=== PATIENT | female | born 1950 | race Caucasian/White ===

== ENCOUNTER 2016-09-08 11:44 | Emergency (ER) | payer BC ==
[2016-09-08 11:57] VITALS: BP 131/61
--- NOTE | 2016-09-08 12:44 | UC ---
Throat Pain/Nasal Arthur HPI - HPI Summary HPI Summary: complaint of cough nasal congestion , sore throat that started 3 days ago for the last 2 days she has started wheezing more often worse at night, cough is worse at night feels like her breathing is tight denies shortness of breath at this time using all her regular inhalers- pulmicort added since illness last inhaler use 11:00 today denies fever but has had chills OTC cold and congestion with some relief of symptoms - History of Current Complaint Chief Complaint: UCRespiratory Stated Complaint: CHEST CONGESTION, COUGH Time Seen by Provider: 09/08/16 12:39 Hx Obtained From: Patient - Allergies/Home Medications Allergies/Adverse Reactions: Allergies Allergy/AdvReac Type Severity Reaction Status Date / Time Ciprofloxacin [From Cipro] Allergy Itching Verified 01/15/16 13:26 Clavulanic Acid Allergy Itching Verified 01/15/16 13:26 [From Augmentin] Doxycycline Allergy Itching Verified 01/15/16 13:26 Iodine Allergy See Comment Verified 01/15/16 13:26 Avalox AdvReac See Comment Uncoded 01/15/16 13:26 Home Medications: Home Medications Budesonide Flexhaler 180 (NF) [Pulmicort Flexhaler 180 mcg/act (NF)] 2 inh IN BID 09/08/16 [History Confirmed 09/08/16] Pravastatin Sodium [Pravachol] 40 mg PO QPM 09/08/16 [History Confirmed 09/08/16 ] PMH/Surg Hx/FS Hx/Imm Hx Previously Healthy: Yes Endocrine History Of: Reports: Diabetes Cardiovascular History Of: Reports: Hypertension Respiratory History Of: Reports: Asthma GI/ History Of: Denies: Kidney Stones Psychological History Of: Reports: Anxiety Cancer History Of: Denies: Lung Cancer - Surgical History Surgical History: Yes Surgery Procedure, Year, and Place: Mastectomy, Implant, Breast reconstruction 2001, Sinus surgery x 2 - Family History Known Family History: Positive: None Negative: Cardiac Disease, Hypertension, Diabetes - Social History Occupation: Employed Part-time Lives: With Family Alcohol Use: Weekly Substance Use Type: None Smoking Status (MU): Never Smoked Tobacco Type: Cigarettes Amount Used/How Often: 1/2 PPD Length of Time of Smoking/Using Tobacco: 29 Years Have You Smoked in the Last Year: No When Did the Patient Quit Smoking/Using Tobacco: 2005 - Immunization History Most Recent Influenza Vaccination: June 2015 Review of Systems Constitutional: Chills Skin: Negative Eyes: Negative ENT: Sore Throat, Nasal Discharge Respiratory: Cough Cardiovascular: Negative Gastrointestinal: Negative Genitourinary: Negative Motor: Negative Neurovascular: Negative Musculoskeletal: Negative Neurological: Negative Psychological: Negative All Other Systems Reviewed And Are Negative: Yes Physical Exam Triage Information Reviewed: Yes Appearance: No Pain Distress, Well-Nourished Vital Signs: Initial Vital Signs Temp 96.6 F 09/08/16 11:54 Pulse 86 09/08/16 11:54 Resp 16 09/08/16 11:54 BP 131/61 09/08/16 11:54 Pulse Ox 98 09/08/16 11:54 Vital Signs Reviewed: Yes Eyes: Positive: Conjunctiva Clear ENT: Positive: Pharynx normal, Nasal congestion, Nasal drainage, TMs normal Neck: Positive: No Lymphadenopathy Respiratory: Positive: Wheezing - in BLL, no rhonchi , other tenorio CTA. Negative: No respiratory distress, No accessory muscle use Cardiovascular: Positive: RRR, No Murmur, Pulses Normal Abdomen Description: Positive: Nontender, Soft Bowel Sounds: Positive: Present Musculoskeletal: Positive: No Edema Neurological: Positive: Alert Psychological Exam: Normal Skin Exam: Normal Throat Pain/Nasal Course/Dx - Course Course Of Treatment: exam completed. will treat for asthma exacerbation with follow with pulmunologist - Differential Dx/Diagnosis Provider Diagnoses: asthma exacerbation Discharge - Discharge Plan Condition: Stable Disposition: HOME Prescriptions: Azithromycin TAB* [Zithromax TAB (Z-DONNA)*] 0 mg PO .Z-DONNA INSTRUCTIONS #6 tab predniSONE TAB* [Deltasone TAB*] 50 mg PO DAILY #5 tab Patient Education Materials: Asthma (ED), Wheezing (ED) Referrals: Ziggy Vazquez MD [Primary Care Provider] - Additional Instructions: Please take antibiotic and prednisone as directed Use your regular inhalers as directed for wheezing, shortness of breath or uncontrolled coughing. Increase fluids and rest Take acetaminophen or ibuprofen for fever or pain Please review your discharge instructions. If your symptoms do not improve please call your pulmunologist or primary care provider or return to urgent care.
== END 2016-09-08 12:59 | disposition home or self-care (01) ==
LOC: UCCORT 11:44
DX: J45.901 Unspecified asthma with (acute) exacerbation (principal); E11.9 Type 2 diabetes mellitus without complications; I10 Essential (primary) hypertension; F41.9 Anxiety disorder, unspecified; Z87.891 Personal history of nicotine dependence; Z88.1 Allergy status to other antibiotic agents; Z88.8 Allergy status to other drugs, medicaments and biological substances
CPT/HCPCS: 99212; G0463

== ENCOUNTER 2016-10-06 14:27 | Emergency (ER) | payer BC ==
[2016-10-06 17:20] VITALS: BP 155/77
--- NOTE | 2016-10-06 17:48 | UC ---
Respiratory Complaint HPI - HPI Summary HPI Summary: URI symptoms for 2days, has triggered her asthma. Wheezing. Needs Pulmicort for her neb. Had similar illness 1 month ago, resolved with Zithromax and steroid. Feels SOB with exertion. Hard to lie flat. Dry, bronchospastic cough. MIld sinus congestion, discomfort right maxillary sinus. Mild ST. Able to eat and drink. Nonsmoker - History of Current Complaint Chief Complaint: UCRespiratory Stated Complaint: HEAD/CHEST CONGESTION Time Seen by Provider: 10/06/16 17:35 Hx Obtained From: Patient Onset/Duration: Gradual Onset, Lasting Days - 2 Timing: Constant Severity Initially: Mild Severity Currently: Moderate Character: Cough: Productive Aggravating Factors: Exertion, Recumbent Position Alleviating Factors: Bronchodilator Associated Signs And Symptoms: Positive: Dyspnea, Wheezing, URI, Nasal Congestion, Hoarseness, Sinus Discomfort. Negative: Fever, Chills, Pleuritic Chest Pain, Hemoptysis, Dizziness, Calf Pain, Calf Swelling - Risk Factors Pulmonary Embolism Risk Factors: Negative Cardiac Risk Factors: Negative Pseudomonas Risk Factors: Negative Tuberculosis Risk Factors: Negative - Allergies/Home Medications Allergies/Adverse Reactions: Allergies Allergy/AdvReac Type Severity Reaction Status Date / Time Ciprofloxacin [From Cipro] Allergy Itching Verified 10/06/16 17:20 Clavulanic Acid Allergy Itching Verified 10/06/16 17:20 [From Augmentin] Doxycycline Allergy Itching Verified 10/06/16 17:20 Iodine Allergy See Comment Verified 10/06/16 17:20 Avalox AdvReac See Comment Uncoded 10/06/16 17:20 PMH/Surg Hx/FS Hx/Imm Hx Endocrine History Of: Reports: Diabetes Cardiovascular History Of: Reports: Hypertension Respiratory History Of: Reports: Asthma GI/ History Of: Denies: Kidney Stones Psychological History Of: Reports: Anxiety Cancer History Of: Denies: Lung Cancer - Surgical History Surgical History: Yes Surgery Procedure, Year, and Place: Mastectomy, Implant, Breast reconstruction 2001, Sinus surgery x 2 - Family History Known Family History: Positive: None Negative: Cardiac Disease, Hypertension, Diabetes - Social History Occupation: Employed Full-time Lives: With Family Alcohol Use: Weekly Substance Use Type: None Smoking Status (MU): Former Smoker Type: Cigarettes Amount Used/How Often: 1/2 PPD Length of Time of Smoking/Using Tobacco: 29 Years Have You Smoked in the Last Year: No When Did the Patient Quit Smoking/Using Tobacco: 2005 - Immunization History Most Recent Influenza Vaccination: June 2015 Review of Systems Constitutional: Fatigue Skin: Negative Eyes: Negative ENT: Sore Throat - mild, Nasal Discharge Respiratory: Shortness Of Breath, Cough Cardiovascular: Negative Gastrointestinal: Negative Genitourinary: Negative Motor: Negative Neurovascular: Negative Musculoskeletal: Negative Neurological: Negative Psychological: Negative All Other Systems Reviewed And Are Negative: Yes Physical Exam Triage Information Reviewed: Yes Appearance: Well-Appearing, No Pain Distress, Well-Nourished Vital Signs: Initial Vital Signs Temp 97.8 F 10/06/16 17:18 Pulse 100 10/06/16 17:18 Resp 16 10/06/16 17:18 BP 155/77 10/06/16 17:18 Pulse Ox 96 10/06/16 17:18 Vital Signs Reviewed: Yes Eye Exam: Normal ENT: Positive: Hearing grossly normal, Pharynx normal, Pharyngeal erythema - mild, Nasal congestion, TMs normal, Muffled/hoarse voice - hoarse. Negative: Tonsillar swelling, Tonsillar exudate, Trismus Neck exam: Normal Neck: Positive: Supple Respiratory: Positive: No respiratory distress, No accessory muscle use, Rhonchi , Wheezing - end-expiratory, diffuse, mild Musculoskeletal Exam: Normal Neurological Exam: Normal Psychological Exam: Normal Skin Exam: Normal UC Diagnostic Evaluation - Laboratory O2 Sat by Pulse Oximetry: 96 Respiratory Course/Dx - Differential Dx/Diagnosis Differential Diagnosis/HQI/PQRI: Bronchitis, Lower Resp Infection, Sinusitis Provider Diagnoses: URI with bronchospasm Discharge - Discharge Plan Condition: Stable Disposition: HOME Prescriptions: Azithromycin TAB* [Zithromax TAB (Z-DONNA) 250 mg #6 tabs] 250 mg PO DAILY #10 tab Budesonide NEB* [Pulmicort NEB*] 0.5 mg INH BID #30 neb.soln predniSONE TAB* [Deltasone TAB*] 20 mg PO DAILY #14 tab Patient Education Materials: Upper Respiratory Infection (ED), Bronchospasm (ED ) Referrals: Ziggy Vazquez MD [Primary Care Provider] -
== END 2016-10-06 17:57 | disposition home or self-care (01) ==
LOC: UCCORT 14:27
DX: J06.9 Acute upper respiratory infection, unspecified (principal); J98.01 Acute bronchospasm; J45.909 Unspecified asthma, uncomplicated; E11.9 Type 2 diabetes mellitus without complications; I10 Essential (primary) hypertension; F41.9 Anxiety disorder, unspecified; Z87.891 Personal history of nicotine dependence; Z88.1 Allergy status to other antibiotic agents; Z91.041 Radiographic dye allergy status
CPT/HCPCS: 99212; G0463

== ENCOUNTER 2017-07-24 09:50 | Emergency (ER) | payer MEDICARE ==
[2017-07-24 10:17] VITALS: BP 135/85
--- NOTE | 2017-07-24 10:59 | UC ---
Respiratory Complaint HPI - HPI Summary HPI Summary: Cough, wheezing, congestion. She has hx of asthma and feels like an asthma exacerbation. She has been taking her rescue inhaler and inhaled steroid. - History of Current Complaint Chief Complaint: UCRespiratory Stated Complaint: CONGESTION Time Seen by Provider: 07/24/17 10:44 Hx Obtained From: Patient Hx Last Menstrual Period: n/a Onset/Duration: Gradual Onset, Lasting Days Timing: Constant Severity Initially: Moderate Severity Currently: Moderate Character: Cough: Nonproductive Aggravating Factors: Deep Breaths, Recumbent Position Alleviating Factors: Bronchodilator Associated Signs And Symptoms: Positive: Negative, Wheezing, URI, Nasal Congestion - Allergies/Home Medications Allergies/Adverse Reactions: Allergies Allergy/AdvReac Type Severity Reaction Status Date / Time Ciprofloxacin [From Cipro] Allergy Itching Verified 07/24/17 10:17 Clavulanic Acid Allergy Itching Verified 07/24/17 10:17 [From Augmentin] Doxycycline Allergy Itching Verified 07/24/17 10:17 Iodine Allergy See Comment Verified 07/24/17 10:17 Avalox AdvReac See Comment Uncoded 07/24/17 10:17 Home Medications: Home Medications Albuterol HFA INHALER* [Ventolin HFA Inhaler*] 2 puff INH Q4H PRN 07/24/17 [ History Confirmed 07/24/17] PMH/Surg Hx/FS Hx/Imm Hx Previously Healthy: No - asthma, htn. - Surgical History Surgical History: Yes Surgery Procedure, Year, and Place: Mastectomy, Implant, Breast reconstruction 2001, Sinus surgery x 2 - Family History Known Family History: Positive: None Negative: Cardiac Disease, Hypertension, Diabetes - Social History Alcohol Use: Weekly Substance Use Type: None Smoking Status (MU): Former Smoker Type: Cigarettes Amount Used/How Often: 1/2 PPD Length of Time of Smoking/Using Tobacco: 29 Years Have You Smoked in the Last Year: No When Did the Patient Quit Smoking/Using Tobacco: 2005 - Immunization History Most Recent Influenza Vaccination: June 2015 Review of Systems ENT: Sinus Congestion Respiratory: Shortness Of Breath, Cough All Other Systems Reviewed And Are Negative: Yes Physical Exam Triage Information Reviewed: Yes Appearance: Well-Appearing, No Pain Distress, Well-Nourished Vital Signs: Initial Vital Signs Temp 98.1 F 07/24/17 10:12 Pulse 98 07/24/17 10:12 Resp 20 07/24/17 10:12 BP 135/85 07/24/17 10:12 Pulse Ox 96 07/24/17 10:12 Vital Signs Reviewed: Yes Eye Exam: Normal Eyes: Positive: Conjunctiva Clear ENT: Positive: Normal ENT inspection, Nasal congestion, Uvula midline. Negative : Pharyngeal erythema, Sinus tenderness Neck: Positive: Supple, Nontender, No Lymphadenopathy Respiratory: Positive: Chest non-tender, No respiratory distress, No accessory muscle use, Wheezing, Other: - good air movement.. Negative: Accessory muscle use, Crackles, Rhonchi, Stridor Cardiovascular: Positive: RRR, No Murmur, Pulses Normal, Brisk Capillary Refill Abdomen Description: Positive: Nontender, No Organomegaly. Negative: Distended , Guarding Musculoskeletal: Positive: Strength Intact, ROM Intact, No Edema Neurological: Positive: Alert, Muscle Tone Normal, Fatigued Skin: Negative: rashes UC Diagnostic Evaluation - Laboratory O2 Sat by Pulse Oximetry: 96 Respiratory Course/Dx - Differential Dx/Diagnosis Provider Diagnoses: uri. acute asthma exacerbation. Discharge - Discharge Plan Condition: Good Disposition: HOME Prescriptions: Azithromyxin DONNA (NF) [Z-Donna (Zithromax) 250 mg tabs #6] 2 tab PO .TODAY, THEN 1 DAILY #6 tab Prednisone 20 mg PO DAILY #15 tab Patient Education Materials: Asthma (ED), Reactive Airways Disease (ED) Referrals: Ziggy Vazquez MD [Primary Care Provider] - If Needed
== END 2017-07-24 11:00 | disposition home or self-care (01) ==
LOC: UCCORT 09:50
DX: J45.901 Unspecified asthma with (acute) exacerbation (principal); J06.9 Acute upper respiratory infection, unspecified; I10 Essential (primary) hypertension; Z88.3 Allergy status to other anti-infective agents; Z87.891 Personal history of nicotine dependence
CPT/HCPCS: 99212; G0463

== ENCOUNTER 2017-07-28 10:20 | Emergency (ER) | payer MEDICARE ==
[2017-07-28 13:15] VITALS: BP 146/68
--- NOTE | 2017-07-28 13:30 | UC ---
Ear Complaint HPI - HPI Summary HPI Summary: Pt c/o right ear pain that began 2 days ago. Pt was treated on 07/24/17 for bronchitis with z-kevan and prednisone. Pt states that cough has improved but now ear pain began 2 days ago. - History of Current Complaint Chief Complaint: UCRespiratory Stated Complaint: EAR ACHE,SINUSES RECHECK Time Seen by Provider: 07/28/17 13:15 Hx Obtained From: Patient Hx Last Menstrual Period: n/a ?: No Onset/Duration: Sudden Onset, Lasting Days, Still Present, Worse Since - onset Severity Initially: Mild Severity Currently: Moderate Associated Signs/Symptoms: Positive: URI Symptoms - Allergies/Home Medications Allergies/Adverse Reactions: Allergies Allergy/AdvReac Type Severity Reaction Status Date / Time Ciprofloxacin [From Cipro] Allergy Itching Verified 07/28/17 13:13 Clavulanic Acid Allergy Itching Verified 07/28/17 13:13 [From Augmentin] Doxycycline Allergy Itching Verified 07/28/17 13:13 Iodine Allergy See Comment Verified 07/28/17 13:13 Avalox AdvReac See Comment Uncoded 07/28/17 13:13 PMH/Surg Hx/FS Hx/Imm Hx Previously Healthy: Yes - Surgical History Surgical History: Yes Surgery Procedure, Year, and Place: Mastectomy, Implant, Breast reconstruction 2001, Sinus surgery x 2 - Family History Known Family History: Positive: None Negative: Cardiac Disease, Hypertension, Diabetes - Social History Occupation: Retired Lives: With Family Alcohol Use: Weekly Substance Use Type: None Smoking Status (MU): Former Smoker Type: Cigarettes Amount Used/How Often: 1/2 PPD Length of Time of Smoking/Using Tobacco: 29 Years Have You Smoked in the Last Year: No When Did the Patient Quit Smoking/Using Tobacco: 2005 - Immunization History Most Recent Influenza Vaccination: June 2017 Vaccination Up to Date: Yes Review of Systems Constitutional: Negative Skin: Negative Eyes: Negative ENT: Ear Ache Respiratory: Cough Cardiovascular: Negative Gastrointestinal: Negative Genitourinary: Negative Motor: Negative Neurovascular: Negative Musculoskeletal: Negative Neurological: Negative Psychological: Negative Is Patient Immunocompromised?: No All Other Systems Reviewed And Are Negative: Yes Physical Exam Triage Information Reviewed: Yes Appearance: Well-Appearing Vital Signs: Initial Vital Signs Temp 98 F 07/28/17 13:10 Pulse 92 07/28/17 13:10 Resp 20 07/28/17 13:10 BP 146/68 07/28/17 13:10 Pulse Ox 94 07/28/17 13:10 Vital Signs Reviewed: Yes Eye Exam: Normal ENT Exam: Other ENT: Positive: TM bulging, TM red - right Neck exam: Normal Respiratory Exam: Normal Cardiovascular Exam: Normal Musculoskeletal Exam: Normal Neurological Exam: Normal Psychological Exam: Normal Skin Exam: Normal Ear Complaint Course/Dx - Differential Dx/Diagnosis Differential Diagnosis/HQI/PQRI: Otitis Media, URI Provider Diagnoses: OM right ear Discharge - Discharge Plan Condition: Stable Disposition: HOME Prescriptions: Clarithromycin TAB* [Biaxin 250 MG TAB*] 250 mg PO Q12H #10 tab Patient Education Materials: Otitis Media (ED) Referrals: Ziggy Vazquez MD [Primary Care Provider] - If Needed
== END 2017-07-28 13:38 | disposition home or self-care (01) ==
LOC: UCCORT 10:20
DX: H66.91 Otitis media, unspecified, right ear (principal); Z88.1 Allergy status to other antibiotic agents; Z87.891 Personal history of nicotine dependence
CPT/HCPCS: 99212; G0463

== ENCOUNTER 2017-10-04 14:21 | Emergency (ER) | payer MEDICARE ==
[2017-10-04 16:32] VITALS: BP 150/81
--- NOTE | 2017-10-04 16:42 | ED ---
Throat Pain/Nasal Congestion - HPI Summary HPI Summary: 67 yr old on Augmentin for sinus infection and steroids for asthma. Presents here with new complaint of sore throat for a day. She has no stridor. No drooling. No other complaints. - History of Current Complaint Chief Complaint: UCRespiratory Time Seen by Provider: 10/04/17 16:14 - Allergies/Home Medications Allergies/Adverse Reactions: Allergies Allergy/AdvReac Type Severity Reaction Status Date / Time MS Ciprofloxacin [From Cipro] Allergy Itching Verified 10/04/17 16:10 MS Clavulanic Acid Allergy Itching Verified 10/04/17 16:10 [From Augmentin] MS Doxycycline [Doxycycline] Allergy Itching Verified 10/04/17 16:10 MS Iodine [Iodine] Allergy See Comment Verified 10/04/17 16:10 Avalox AdvReac See Comment Uncoded 10/04/17 16:10 Home Medications: Home Medications Amoxicillin/Clavulanate TAB* [Augmentin TAB 875*] 875 mg PO BID 10/04/17 [ History Confirmed 10/04/17] Prednisone 30 mg PO BID 10/04/17 [History Confirmed 10/04/17] PMH/Surg Hx/FS Hx/Imm Hx Endocrine/Hematology History: Reports: Hx Diabetes Denies: Hx Systemic Lupus Erythematosus Cardiovascular History: Reports: Hx Hypertension Respiratory History: Reports: Hx Asthma Denies: Hx Lung Cancer History: Denies: Hx Kidney Stones Musculoskeletal History: Denies: Hx Rheumatoid Arthritis Psychiatric History: Reports: Hx Anxiety - Cancer History Cancer Type, Location and Year: Breast CA Hx Chemotherapy: Yes - Breast Ca 2001 - Surgical History Surgery Procedure, Year, and Place: Mastectomy, Implant, Breast reconstruction 2001, Sinus surgery x 2 Infectious Disease History: Yes Infectious Disease History: Reports: Hx Shingles - ~2006 Denies: Hx Clostridium Difficile, Hx Hepatitis, Hx Human Immunodeficiency Virus (HIV), Hx of Known/Suspected MRSA, Hx Tuberculosis, Hx Known/Suspected VRE , Hx Known/Suspected VRSA, History Other Infectious Disease, Traveled Outside the [place] in Last 30 Days - Family History Known Family History: Positive: None Negative: Cardiac Disease, Hypertension, Diabetes - Social History Alcohol Use: Weekly Alcohol Amount: 2 Substance Use Type: Reports: None Smoking Status (MU): Former Smoker Type: Cigarettes Amount Used/How Often: 1/2 PPD Length of Time of Smoking/Using Tobacco: 29 Years Have You Smoked in the Last Year: No Review of Systems Constitutional: Negative Positive: Sore Throat, Nasal Discharge Positive: Cough All Other Systems Reviewed And Are Negative: Yes Physical Exam Triage Information Reviewed: Yes Vital Signs On Initial Exam: Initial Vitals Temp Pulse Resp BP Pulse Ox 97.5 F 98 18 150/81 96 10/04/17 16:27 10/04/17 16:27 10/04/17 16:27 10/04/17 16:27 10/04/17 16:27 Vital Signs Reviewed: Yes Appearance: Positive: Well-Appearing, No Pain Distress Skin: Positive: Warm, Skin Color Reflects Adequate Perfusion Eyes: Positive: EOMI ENT: Positive: Pharyngeal erythema, Nasal congestion Neck: Positive: Supple, Nontender Respiratory/Lung Sounds: Positive: Clear to Auscultation, Breath Sounds Present Cardiovascular: Positive: RRR. Negative: Murmur Abdomen Description: Positive: Nontender Musculoskeletal: Positive: Strength/ROM Intact Neurological: Positive: Sensory/Motor Intact, Alert, Oriented to Person Place, Time, CN Intact II-III Psychiatric: Positive: Normal - Beto Coma Scale Best Eye Response: 4 - Spontaneous Best Motor Response: 6 - Obeys Commands Best Verbal Response: 5 - Oriented Coma Scale Total: 15 Diagnostics - Vital Signs Vital Signs Temp Pulse Resp BP Pulse Ox 10/04/17 16:27 97.5 F 98 18 150/81 96 - Laboratory Lab Results: Lab Results 10/04/17 Range/Units 16:27 Group A Strep Rapid Negative (Negative) Lab Statement: Any lab studies that have been ordered have been reviewed, and results considered in the medical decision making process. EENT Course/Dx - Course Course Of Treatment: 67 yr old with sore throat. DC home. Strep neg. - Diagnoses Provider Diagnoses: Pharyngitis, Hypertension Discharge - Discharge Plan Condition: Good Disposition: HOME Patient Education Materials: Pharyngitis (ED), Hypertension (ED) Referrals: Ziggy Vazquez MD [Primary Care Provider] -
== END 2017-10-04 16:49 | disposition home or self-care (01) ==
LOC: UCCORT 14:21
DX: J02.9 Acute pharyngitis, unspecified (principal); I10 Essential (primary) hypertension; E11.9 Type 2 diabetes mellitus without complications; J45.909 Unspecified asthma, uncomplicated; F41.9 Anxiety disorder, unspecified; Z85.3 Personal history of malignant neoplasm of breast; Z88.1 Allergy status to other antibiotic agents; Z87.891 Personal history of nicotine dependence
CPT/HCPCS: 87651; 99212; G0463

== ENCOUNTER 2023-02-08 09:44 | Inpatient (IN) ==
[~2023-02-08 09:44] MED LIST: Buffered Lidocaine 1% SYRIN 1 ml INTRADERM ONE; Lactated Ringers 1000 ml BAG 1,000 ML IV SCH; Naloxone 0.4 mg VIAL 0.4 mg/ml 1 ml VIAL IV PRN; Ondansetron 4 mg VIAL 2 MG/ML 2 ml VIAL IV PRN; fentaNYL 100 mcg/2 ml 50 MCG/ML VIAL IV PRN
[2023-02-08] MEDS ORDERED: Propofol 10 MG/ML 20 ML BTL ONE ×2 (10:32→14:20)
[2023-02-08] MEDS ORDERED: Lidocaine 2% PF 5 ML VIAL ONE (10:44)
[2023-02-08] MEDS ORDERED: ceFAZolin 2 GM in NS PREMIX 2 GM/100 ML BAG IVPB ONE (10:44)
[2023-02-08 10:54] LABS: Rapid COVID-19 Molecular Undetected (Undetected)
[2023-02-08] MEDS ORDERED: Dexamethasone IV 4 MG/ML VIAL 1 ml VIAL ONE ×2 (10:58→13:30)
[2023-02-08] MEDS ORDERED: Midazolam 2 mg/2 ml VIAL 1 mg/ml 2 ml VIAL (2 mg) ONE (10:58)
[2023-02-08] MEDS ORDERED: ROPIVACAINE 5 MG/ML 30 ML BTL (0.5%) ONE (10:58)
[2023-02-08] MEDS ORDERED: Ketamine HCL 50 mg/ml 10 ml VIAL (500 MG) ONE (12:52)
[2023-02-08] MEDS ORDERED: fentaNYL 100 mcg/2 ml 50 MCG/ML VIAL ONE (13:00)
[2023-02-08] MEDS ORDERED: Glycopyrrolate IV 0.2 MG/ML 1 ML VIAL ONE (13:30)
[2023-02-08] MEDS ORDERED: Lactulose 30 ml UDC PO PRN (14:40)
[2023-02-08] MEDS ORDERED: Magnesium Hydroxide LIQ 30 ML UDC PO PRN (14:40)
[2023-02-08] MEDS ORDERED: Morphine 2 MG/ML SYRINGE IV PRN (14:40)
[2023-02-08] MEDS ORDERED: Ondansetron 4 mg VIAL 2 MG/ML 2 ml VIAL ONE (14:46)
[2023-02-08] MEDS ORDERED: Albuterol/Ipratropium NEB.SOL (2.5/0.5 MG) 3 ML NEB.SOLN INH PRN (16:30)
[2023-02-08] MEDS ORDERED: Dextrose 50% Syringe 50 ml 25 GM/50 ML SYRINGE IV PUSH PRN (16:34)
[2023-02-08] MEDS ORDERED: Acetylcysteine INH SOL (RT) 200 MG/ML 4 ML VIAL INH PRN (17:30)
[2023-02-08] MEDS: Lactated Ringers 1000 ml BAG 1,000 ML IV SCH (17:49)
[2023-02-08] MEDS: Mometasone 220 MCG MDI INH SCH ×2 (19:38→19:47)
[2023-02-08] MEDS: DULoxetine DR 30 mg CAP PO SCH (20:28)
[2023-02-08] MEDS ORDERED: [UNRECOGNIZED DRUG - OTHER] INH SCH (21:00)
[2023-02-08] MEDS ORDERED: Insulin GLARGINE 100 un/ml 10 ml VIAL SUBCUT SCH (21:00)
[2023-02-08] MEDS: Magnesium Hydroxide LIQ 30 ML UDC PO SCH (21:35)
[2023-02-08] MEDS: BUDESONIDE GLYCOPYR FORMOTEROL INH SCH (22:07)
[2023-02-08] MEDS: ACTUA INH SCH (22:07)
[2023-02-08] MEDS: ceFAZolin 1 GM ADVAN 1 GM in NS 0.9% 50 ML 50 ML IVPB SCH (22:08)
[2023-02-09] MEDS: Lactated Ringers 1000 ml BAG 1,000 ML IV SCH (04:30)
[2023-02-09] MEDS: ceFAZolin 1 GM ADVAN 1 GM in NS 0.9% 50 ML 50 ML IVPB SCH ×2 (06:51→14:49)
[2023-02-09] MEDS: Mometasone 220 MCG MDI INH SCH ×2 (06:57→19:23)
[2023-02-09 08:12] LABS: Hematocrit 32.6 % (35-45); Hemoglobin 11.1 g/dL (11.5-14.3); Mean Platelet Volume 8.2 fL (7.5-11.2); Platelet Count 200 10^3/uL (150-450)
[2023-02-09 08:31] LABS: Calcium 10.3 mg/dL (8.6-10.3); Creatinine, Serum 1.04 mg/dL (0.51-0.95); Potassium 4.4 mmol/L (3.5-5.0); eGFR CKD-EPI 57.8 (>60)
[2023-02-09] MEDS ORDERED: Olmesartan 40 mg TAB (NF) PO SCH (09:00)
[2023-02-09] MEDS: Magnesium Hydroxide LIQ 30 ML UDC PO SCH ×2 (10:09→21:03)
[2023-02-09] MEDS: DULoxetine DR 30 mg CAP PO SCH ×2 (10:10→21:06)
[2023-02-09] MEDS: Vitamin THERAPEUTIC TAB PO SCH (10:10)
[2023-02-09] MEDS: DAPAGLIFLOZIN 5 MG PO SCH (13:59)
[2023-02-09] MEDS: BECLOMETHASONE DIPROPIONATE INTRANASAL SCH (15:04)
[2023-02-09] MEDS: BUDESONIDE GLYCOPYR FORMOTEROL INH SCH (15:04)
[2023-02-09] MEDS: ACTUA INH SCH (15:04)
[2023-02-09] MEDS ORDERED: Insulin GLARGINE 100 un/ml 10 ml VIAL SUBCUT SCH (21:00)
[2023-02-09] MEDS: Albuterol HFA INHALER 8 gm MDI INH PRN (23:07)
[2023-02-10 06:57] LABS: Hematocrit 31.9 % (35-45); Hemoglobin 10.8 g/dL (11.5-14.3); Mean Platelet Volume 8.2 fL (7.5-11.2); Platelet Count 223 10^3/uL (150-450)
[2023-02-10] MEDS: Mometasone 220 MCG MDI INH SCH ×2 (08:20→19:20)
[2023-02-10] MEDS: Albuterol HFA INHALER 8 gm MDI INH PRN ×2 (08:54→23:48)
[2023-02-10] MEDS: BECLOMETHASONE DIPROPIONATE INTRANASAL SCH (08:55)
[2023-02-10] MEDS: Magnesium Hydroxide LIQ 30 ML UDC PO SCH ×2 (08:56→20:05)
[2023-02-10] MEDS: DULoxetine DR 30 mg CAP PO SCH ×2 (08:58→20:09)
[2023-02-10] MEDS: Vitamin THERAPEUTIC TAB PO SCH (09:07)
[2023-02-10] MEDS: BUDESONIDE GLYCOPYR FORMOTEROL INH SCH ×2 (09:26→15:42)
[2023-02-10] MEDS: ACTUA INH SCH ×2 (09:26→15:42)
[2023-02-10] MEDS: DAPAGLIFLOZIN 5 MG PO SCH ×2 (09:55→18:31)
[2023-02-10] MEDS ORDERED: Insulin GLARGINE 100 un/ml 10 ml VIAL SUBCUT SCH (21:00)
[2023-02-11 06:13] LABS: Hematocrit 29.2 % (35-45); Mean Platelet Volume 8.3 fL (7.5-11.2); Platelet Count 206 10^3/uL (150-450)
[2023-02-11] MEDS ORDERED: BUDESONIDE GLYCOPYR FORMOTEROL INH SCH (07:00)
[2023-02-11] MEDS ORDERED: ACTUA INH SCH (07:00)
[2023-02-11] MEDS: Mometasone 220 MCG MDI INH SCH ×2 (08:11→17:25)
[2023-02-11] MEDS: DULoxetine DR 30 mg CAP PO SCH ×2 (08:13→21:43)
[2023-02-11] MEDS: Vitamin THERAPEUTIC TAB PO SCH (08:14)
[2023-02-11] MEDS: Albuterol HFA INHALER 8 gm MDI INH PRN (08:17)
[2023-02-11] MEDS: Magnesium Hydroxide LIQ 30 ML UDC PO SCH ×4 (08:17→21:43)
[2023-02-11] MEDS: BECLOMETHASONE DIPROPIONATE INTRANASAL SCH (08:18)
[2023-02-11] MEDS: DAPAGLIFLOZIN 5 MG PO SCH (08:21)
[2023-02-11] MEDS: ACTUA INH SCH ×2 (09:38→17:26)
[2023-02-11] MEDS: BUDESONIDE GLYCOPYR FORMOTEROL INH SCH ×2 (09:38→17:26)
[2023-02-11] MEDS: Insulin GLARGINE 100 un/ml 10 ml VIAL SUBCUT SCH (21:44)
[2023-02-12] MEDS: Mometasone 220 MCG MDI INH SCH ×2 (07:29→19:44)
[2023-02-12] MEDS: BUDESONIDE GLYCOPYR FORMOTEROL INH SCH ×2 (07:30→19:45)
[2023-02-12] MEDS: ACTUA INH SCH ×2 (07:30→19:45)
[2023-02-12] MEDS: Magnesium Hydroxide LIQ 30 ML UDC PO SCH ×2 (09:16→23:34)
[2023-02-12] MEDS: DULoxetine DR 30 mg CAP PO SCH ×2 (09:17→22:24)
[2023-02-12] MEDS: Vitamin THERAPEUTIC TAB PO SCH (09:18)
[2023-02-12] MEDS: DAPAGLIFLOZIN 5 MG PO SCH (09:19)
[2023-02-12 09:49] LABS: Hematocrit 30.1 % (35-45); Hemoglobin 10.1 g/dL (11.5-14.3); Mean Platelet Volume 8.3 fL (7.5-11.2); Platelet Count 268 10^3/uL (150-450)
[2023-02-12] MEDS ORDERED: Calcium Carb (TUMS) 500 mg CHEW TAB PO PRN (11:12)
[2023-02-12] MEDS: BECLOMETHASONE DIPROPIONATE INTRANASAL SCH (14:27)
[2023-02-12] MEDS: Insulin GLARGINE 100 un/ml 10 ml VIAL SUBCUT SCH (22:22)
[2023-02-13 06:52] VITALS: BP 106/60
[2023-02-13 07:01] LABS: Hematocrit 28.1 % (35-45); Hemoglobin 9.7 g/dL (11.5-14.3); Mean Platelet Volume 8.2 fL (7.5-11.2); Platelet Count 220 10^3/uL (150-450)
[2023-02-13] MEDS: Mometasone 220 MCG MDI INH SCH (07:24)
[2023-02-13] MEDS: BUDESONIDE GLYCOPYR FORMOTEROL INH SCH (07:25)
[2023-02-13] MEDS: ACTUA INH SCH (07:25)
[2023-02-13 08:07] LABS: Potassium 4.3 mmol/L (3.5-5.0)
[2023-02-13 08:13] LABS: Creatinine, Serum 1.18 mg/dL (0.51-0.95); eGFR CKD-EPI 49.7 (>60)
[2023-02-13] MEDS: DULoxetine DR 30 mg CAP PO SCH (09:08)
[2023-02-13] MEDS: Magnesium Hydroxide LIQ 30 ML UDC PO SCH (09:08)
[2023-02-13] MEDS: Vitamin THERAPEUTIC TAB PO SCH (09:10)
[2023-02-13] MEDS: BECLOMETHASONE DIPROPIONATE INTRANASAL SCH (09:12)
[2023-02-13] MEDS: DAPAGLIFLOZIN 5 MG PO SCH (09:13)
== END 2023-02-13 10:55 | DRG 470 ==
LOC: INTOOBSV 09:44 → AA 09:44 → SSU 14:40
PROVIDERS: ADMIT Orthopaedic Surgery Adult Reconstructive Orthopaedic Surgery; ATTEND Orthopaedic Surgery Adult Reconstructive Orthopaedic Surgery